=== PATIENT | female | born 1975 | race Caucasian/White ===

== ENCOUNTER 2018-03-13 06:09 | Inpatient (IN) ==
--- NOTE | 2018-03-11 12:26 | XRay Report ---
CLINICAL INFORMATION: Preop COMPARISON: 02/21/2018 FINDINGS: The heart size, mediastinum and pulmonary vessels are unremarkable. The lungs are clear. There are no effusions. The bones and soft tissues are within normal limits. IMPRESSION: Normal chest. Interpreted and Authenticated by: Eleuterio Ferreira 03/11/18
[2018-03-11 14:12] LABS: Basophils # (Auto) 0.1 K/mcL (0.0-0.3); Basophils % (Auto) 0.6 % (0.0-2.0); Eosinophils # (Auto) 0.3 K/mcL (0.0-0.7); Eosinophils % (Auto) 2.3 % (0.0-7.0); Granulocytes % (Auto) 48.9 % (38.0-78.0); Lymphocytes % (Auto) 41.7 % (15.5-49.0); Mean Corpuscular HGB Conc 33.8 g/dL (31.0-36.0); Mean Corpuscular Hemoglobin 30.7 pg (26.0-34.0); Monocytes # (Auto) 0.8 K/mcL (0.1-0.9); Monocytes % (Auto) 6.5 % (1.0-12.0); Platelet Count 339 K/mcL (140-440); RBC 5.44 M/mcL (4.00-5.20); Red Cell Distribution Width 12.7 % (11.5-14.5)
[2018-03-11 14:31] LABS: ALT/SGPT 70 U/l (0-40); Albumin 4.8 gm/dL (3.2-5.2); Albumin/Globulin Ratio 1.5 (1.0-2.3); Alkaline Phosphatase 77 U/L (39-117); Blood Urea Nitrogen 11 mg/dl (6-20)
[~2018-03-13 06:09] MED LIST: IPRATROPIUM/ALBUTEROL 3 ML AMPUL.NEB NEB PRN; SCOPOLAMINE 1 PATCH PATCH TOPICAL PRN
[2018-03-13] MEDS ORDERED: VANCOMYCIN 1,000 MG in 0.9 % SODIUM CHLORIDE 250 ML IV SCH (07:00)
[2018-03-13] MEDS ORDERED: cefOXitin 2 GM VIAL IV SCH (07:00)
[2018-03-13] MEDS ORDERED: DEXAMETHASONE 10 MG/ML VIAL IV ONE (07:35)
[2018-03-13] MEDS ORDERED: LIDOCAINE HCL/PF 100 MG/5 ML SYRINGE IV ONE (07:35)
[2018-03-13] MEDS ORDERED: NEOSTIGMINE 1 MG/ML VIAL IV ONE (07:35)
[2018-03-13] MEDS ORDERED: SUCCINYLCHOLINE 20 MG/ML ML IV ONE (07:35)
[2018-03-13] MEDS ORDERED: PROPOFOL 200 MG/20 ML VIAL IV ONE (07:35)
[2018-03-13] MEDS ORDERED: ROCURONIUM 10 MG/ML ML IV ONE (07:35)
[2018-03-13] MEDS ORDERED: ONDANSETRON 4 MG/2 ML VIAL IV ONE (07:35)
[2018-03-13] MEDS ORDERED: MIDAZOLAM 5 MG/5 ML VIAL IV ONE (07:35)
[2018-03-13] MEDS ORDERED: fentaNYL 250 MCG/5 ML VIAL IV ONE (07:35)
[2018-03-13] MEDS ORDERED: GLYCOPYRROLATE 0.2 MG/ML VIAL IV ONE (07:35)
[2018-03-13] MEDS ORDERED: MEPERIDINE 25 MG/ML SYRINGE IV PRN (08:24)
[2018-03-13] MEDS ORDERED: KETOROLAC 30 MG/ML VIAL IV PRN (08:24)
[2018-03-13] MEDS ORDERED: ACETAMINOPHEN 1,000 MG/100 ML BOTTLE IV ONE (08:24)
[2018-03-13] MEDS ORDERED: ONDANSETRON 4 MG/2 ML VIAL IV PRN (08:24)
[2018-03-13] MEDS ORDERED: IPRATROPIUM/ALBUTEROL 3 ML AMPUL.NEB NEB PRN (08:24)
[2018-03-13] MEDS ORDERED: diphenhydrAMINE 50 MG/ML VIAL IV PRN (08:24)
[2018-03-13] MEDS ORDERED: FLUMAZENIL 0.1 MG/ML ML IV PRN (08:24)
[2018-03-13] MEDS ORDERED: LACTATED RINGERS 250 ML IV PRN (08:24)
[2018-03-13] MEDS ORDERED: BENZOCAINE/MENTHOL 1 LOZENGE PO PRN (08:24)
[2018-03-13] MEDS ORDERED: PROMETHAZINE 25 MG/ML VIAL IV PRN (08:24)
[2018-03-13] MEDS ORDERED: NALOXONE HCL 0.4 MG/ML VIAL IV PRN (08:24)
[2018-03-13] MEDS ORDERED: LACTATED RINGERS 1,000 ML IV SCH (08:30)
[2018-03-13] MEDS ORDERED: BACITRACIN 50,000 UNIT VIAL IR ONE (08:38)
--- NOTE | 2018-03-13 09:04 | Brief Operative Note ---
Date of procedure: 03/13/18 Pre-op diagnosis: recurrent incisional hernia Post-op diagnosis: other (recurrent incisional hernia) Procedure: incisional hernia repair with mesh and separation of components,bilateral Grafts/Implants: Yes (surgimesh 10cm x15cm oval skirted) Anesthesia: GETA (l) Findings: very large fascial defect with incarcerated omentum Complications: none Surgeon: Suze May Estimated blood loss (cc): 25 Specimens Removed/Pathology: none sent Condition: stable Disposition: PACU
[2018-03-13] MEDS ORDERED: ZOLPIDEM 5 MG TABLET PO PRN (09:06)
[2018-03-13] MEDS ORDERED: HYDROcodone/APAP 5/325MG TABLET PO PRN (09:06)
[2018-03-13] MEDS: fentaNYL 100 MCG/2 ML VIAL IV PRN ×4 (09:16→09:49)
[2018-03-13] MEDS ORDERED: MEPERIDINE 50 MG/ML INJECTION IM PRN (09:18)
[2018-03-13] MEDS ORDERED: PROMETHAZINE 25 MG/ML VIAL IM PRN (09:18)
[2018-03-13] MEDS ORDERED: MEPERIDINE 50 MG/ML INJECTION ONE (09:21)
[2018-03-13] MEDS ORDERED: PROMETHAZINE 25 MG/ML VIAL ONE (09:22)
[2018-03-13] MEDS: HYDROmorphone 2 MG/ML VIAL IV PRN ×5 (10:35→22:18)
[2018-03-13] MEDS: ONDANSETRON 4 MG/2 ML VIAL IV PRN (10:38)
[2018-03-13] MEDS: 0.9 % SODIUM CHLORIDE 1,000 ML IV SCH ×2 (12:40→23:37)
[2018-03-13] MEDS: LEVOFLOXACIN 750 MG/150 ML BAG IV SCH (13:39)
[2018-03-13] MEDS: 0.9 % SODIUM CHLORIDE 10 ML SYRINGE IV SCH ×2 (14:40→22:14)
[2018-03-13] MEDS ORDERED: ACETAMINOPHEN 1,000 MG/100 ML BOTTLE IV PRN (15:01)
[2018-03-13] MEDS: MEPERIDINE 50 MG TABLET PO PRN ×3 (15:11→20:36)
[2018-03-13] MEDS: ACETAMINOPHEN 1,000 MG/100 ML BOTTLE IV SCH ×2 (16:05→22:12)
[2018-03-13] MEDS: DOCUSATE SODIUM 100 MG CAPSULE PO SCH (22:12)
[2018-03-14] MEDS: HYDROmorphone 2 MG/ML VIAL IV PRN ×6 (00:41→16:08)
[2018-03-14] MEDS: 0.9 % SODIUM CHLORIDE 1,000 ML IV SCH ×2 (03:14→12:09)
[2018-03-14] MEDS: ACETAMINOPHEN 1,000 MG/100 ML BOTTLE IV SCH ×3 (03:55→23:04)
[2018-03-14 05:33] LABS: Mean Cell Volume 92.3 fL (80.0-100.0); Mean Corpuscular HGB Conc 33.4 g/dL (31.0-36.0); Mean Corpuscular Hemoglobin 30.9 pg (26.0-34.0); Platelet Count 308 K/mcL (140-440); RBC 4.54 M/mcL (4.00-5.20); Red Cell Distribution Width 13.2 % (11.5-14.5)
[2018-03-14 05:48] LABS: ALT/SGPT 86 U/l (0-40); Albumin/Globulin Ratio 1.3 (1.0-2.3); Alkaline Phosphatase 71 U/L (39-117); Bilirubin,Direct < 0.2 mg/dL (0.0-0.3); Blood Urea Nitrogen 8 mg/dl (6-20); Gamma Glutamyl Transpeptidase 105 U/L (5-36); Uric Acid 6.5 mg/dL (2.5-8.0)
[2018-03-14] MEDS: 0.9 % SODIUM CHLORIDE 10 ML SYRINGE IV SCH ×3 (05:54→21:55)
[2018-03-14] MEDS: MEPERIDINE 50 MG TABLET PO PRN ×2 (06:52→10:26)
[2018-03-14 08:02] LABS: Band Neutrophils % 1 % (0-10); Lymphocytes % 28 % (15-49); Monocytes % (Manual) 4 % (1-12); Platelet Estimate NORMAL (NORMAL); RBC Morphology NORMAL (NORMAL); Segmented Neutrophils % 67 % (38-78)
[2018-03-14] MEDS: DOCUSATE SODIUM 100 MG CAPSULE PO SCH ×2 (09:42→21:55)
[2018-03-14] MEDS: LEVOFLOXACIN 750 MG/150 ML BAG IV SCH (09:52)
[2018-03-14] MEDS: KETOROLAC 30 MG/ML VIAL IV SCH ×2 (13:29→18:07)
[2018-03-14] MEDS: oxyCODONE/APAP 10/325MG TABLET PO PRN ×3 (14:34→22:27)
[2018-03-14] MEDS ORDERED: ACETAMINOPHEN 1,000 MG/100 ML BOTTLE IV PRN (16:59)
--- NOTE | 2018-03-14 17:45 | General Surgery Progress Note ---
Subjective Patient reports: feels better, pain is less, tolerating liquids well, flatus, no bowel movement, afebrile Narrative: Note initiated : 03/14/18 at 5:42 pm Service Date, if different from initiated Date: [] Patient: Sandy Khan 42 y/o F admitted on 03/13/18 for Open Hernia Repair Incisional w/Mesh. Chief Complaint: [Patient is stable. She was somewhat agitated earlier today but is feeling better at this time. She has problems with narcotic analgesics but she is advised that I will not increase her dosages. She has no respiratory difficulty. She has had flatus but no bowel movement. Her incision is unremarkable.] Objective Temp Pulse Resp BP Pulse Ox 96.8 F L 75 20 145/81 96 03/14/18 12:00 03/14/18 12:00 03/14/18 12:00 03/14/18 12:00 03/14/18 12:00 - Additional Data Intake & Output - Last 24 hours: Intake & Output 03/12/18 03/13/18 03/14/18 03/15/18 05:59 05:59 05:59 05:59 Intake Total 5300 / 5300 2170 / 2170 Output Total 2450 / 2450 1200 / 1200 Balance 2850 / 2850 970 / 970 Weight 261 lb 12.8 oz 261 lb 12.8 oz 261 lb 12.8 oz - General physical appearance well developed, well nourished, no distress - Eyes PERRL, normal ocular movement - ENT normal pinna, normal nares, normal mucosa, no hearing loss, no congestion - Neck no masses, no bruits, trachea midline, no lymphadectomy, no venous distension - Respiratory normal expansion, normal respiratory effort, clear to auscultation - Cardiovascular Cardiovascular exam: Present: normal rate and rhythm, +S1, +S2. Absent: JVD - Abdomen tender, bowel sounds (She has patient is tomorrow), surgical scars (none), masses (none) - Integumentary no rash, no growths, no abnormal pigmentation - Neurologic normal coordination, normal sensation - Musculoskeletal normal gait, normal posture - Psychiatric oriented to time, oriented to person, oriented to place, speech is normal, memory intact - Labs 03/14/18 04:15 03/14/18 04:15 Diabetes panel 03/14/18 Range/Units 04:15 Sodium 135 (133-145) mmol/L Potassium 4.8 (3.3-5.1) mmol/L Chloride 100 (96-108) mmol/L Carbon Dioxide 23 (22-30) mmol/L BUN 8 (6-20) mg/dl Creatinine 0.8 (0.6-1.1) mg/dl Glucose 126 H (70-105) mg/dL Calcium 9.1 (8.6-10.4) mg/dl AST 49 H (0-37) U/l ALT 86 H (0-40) U/l Alkaline Phosphatase 71 (39-117) U/L Total Protein 7.0 (5.9-8.4) gm/dL Albumin 4.0 (3.2-5.2) gm/dL Triglycerides 134 (<150) mg/dl Calcium panel 03/14/18 Range/Units 04:15 Calcium 9.1 (8.6-10.4) mg/dl Phosphorus 4.0 (2.7-4.5) mg/dL Albumin 4.0 (3.2-5.2) gm/dL Pituitary panel 03/14/18 Range/Units 04:15 Sodium 135 (133-145) mmol/L Potassium 4.8 (3.3-5.1) mmol/L Chloride 100 (96-108) mmol/L Carbon Dioxide 23 (22-30) mmol/L BUN 8 (6-20) mg/dl Creatinine 0.8 (0.6-1.1) mg/dl Glucose 126 H (70-105) mg/dL Calcium 9.1 (8.6-10.4) mg/dl Adrenal panel 03/14/18 Range/Units 04:15 Sodium 135 (133-145) mmol/L Potassium 4.8 (3.3-5.1) mmol/L Chloride 100 (96-108) mmol/L Carbon Dioxide 23 (22-30) mmol/L BUN 8 (6-20) mg/dl Creatinine 0.8 (0.6-1.1) mg/dl Glucose 126 H (70-105) mg/dL Calcium 9.1 (8.6-10.4) mg/dl Total Bilirubin 0.3 (0.0-1.0) mg/dL AST 49 H (0-37) U/l ALT 86 H (0-40) U/l Alkaline Phosphatase 71 (39-117) U/L Total Protein 7.0 (5.9-8.4) gm/dL Albumin 4.0 (3.2-5.2) gm/dL Assessment and Plan (1) Incisional hernia of anterior abdominal wall without obstruction or gangrene Status: Acute Assessment and plan: Continue present therapy Current Visit: Yes - Time Spent With Patient Total time spent is greater than 50% in coordination of care (as documented) at patient's floor/unit and/or counseling patient:
[2018-03-14] MEDS: NICOTINE 21 MG PATCH TD SCH (17:53)
[2018-03-14] MEDS ORDERED: HYDROmorphone 2 MG/ML VIAL ONE (20:22)
[2018-03-15] MEDS: KETOROLAC 30 MG/ML VIAL IV SCH ×3 (00:29→11:39)
[2018-03-15] MEDS: HYDROmorphone 2 MG/ML VIAL IV PRN ×3 (00:33→08:37)
[2018-03-15] MEDS: ONDANSETRON 4 MG/2 ML VIAL IV PRN (01:53)
[2018-03-15] MEDS: oxyCODONE/APAP 10/325MG TABLET PO PRN ×4 (02:28→14:44)
[2018-03-15] MEDS: 0.9 % SODIUM CHLORIDE 10 ML SYRINGE IV SCH ×2 (05:39→08:37)
[2018-03-15] MEDS: LEVOFLOXACIN 750 MG/150 ML BAG IV SCH (09:00)
[2018-03-15] MEDS: DOCUSATE SODIUM 100 MG CAPSULE PO SCH (10:40)
--- NOTE | 2018-03-15 13:41 | Discharge Summary ---
Providers - Providers Patient information: Note initiated : 03/15/18 at 1:39 pm Service Date, if different from initiated Date: [] Patient: Sandy Khan 42 y/o F admitted on 03/13/18 for Open Hernia Repair Incisional w/Mesh. Chief Complaint: [] Date of admission: 03/13/18 Discharge date: 03/15/18 Attending physician: Suze May Hospitalization Hospital course: 42-year-old female who was admitted with incisional hernia. This was repaired uneventfully on the day of admission. She had difficulty with pain control and was very agitated and confrontational on the first postoperative evening and day. Her pain medicine was adjusted but not to her satisfaction. She has some difficulty with narcotic dependence and it is felt that I will not be able to give her enough medication to control her psychogenic need for pain narcotics. The patient is presently stable and is discharged home in satisfactory condition. Discharge diagnosis: Recurrent incisional hernia Reason for admission: incisional hernia with abdominal pain Procedures: Incisional hernia repair with mesh graft Pertinent studies/significant findings: None Complications: None Exam Temp Pulse Resp BP Pulse Ox 97.3 F 60 20 117/79 95 03/15/18 12:00 03/15/18 12:00 03/15/18 04:00 03/15/18 04:00 03/15/18 04:00 - General physical appearance well developed, well nourished, no distress - Eyes PERRL, normal ocular movement - ENT normal pinna, normal nares, normal mucosa, no hearing loss, no congestion - Head Head exam IM: Present: atraumatic, normocephalic - Neck no masses, no bruits, trachea midline, no lymphadectomy, no venous distension - Cardiovascular Cardiovascular exam IM: Present: normal rate and rhythm - Respiratory normal expansion, normal respiratory effort, clear to percussion, clear to auscultation - Abdomen Abdomen: Present: soft, tender (Mild tenderness along incision), bowel sounds, distended (Mild distention but with good active bowel sounds) Hernia: Present: none - Genitourinary Present: normal external genitalia - Integumentary Present: no rash, no growths, no abnormal pigmentation - Neurologic Present: normal coordination, normal sensation - Musculoskeletal Present: normal gait, normal posture - Psychiatric Present: oriented to time, oriented to person, oriented to place, speech is normal, memory intact Discharge Plan - Patient/Caregiver Discharge Instructions Activity: increase activity as tolerated Diet: Regular Diet Prescriptions: LORazepam [Ativan] 1 mg PO BIDP PRN #30 tab PRN Reason: Agitation oxyCODONE HCL [Oxycodone HCl] 10 mg PO Q4HP PRN #60 tab PRN Reason: Pain Promethazine [Phenergan] 25 mg PO Q4HP PRN #30 tab PRN Reason: Nausea And Vomiting - Follow up Plan Follow up with: Suze May MD [Physician] - 03/28/18 1:00 pm Disposition: Home, Self-Care Prognosis: Good Rehab Potential: Good I certify that the patient requires SNF services.: No Overall status at discharge: patient is not back to baseline Pending Studies Resuscitation Status Full Code Diet Full Liquid Diet Start SunMar 13 1503 Docusate Sodium (Colace) 100 mg PO BID [facility] Last Admin: 03/15/18 10:40 Dose: 100 mg Admin: 03/14/18 21:55 Dose: 100 mg Admin: 03/14/18 09:42 Dose: 100 mg Admin: 03/13/18 22:12 Dose: 100 mg Hydromorphone HCl (Dilaudid) 1 mg IV Q4HP PRN PRN Reason: PAIN LEVEL > 6 Last Admin: 03/15/18 08:37 Dose: 1 mg Admin: 03/15/18 04:36 Dose: 1 mg Admin: 03/15/18 00:33 Dose: 1 mg Levofloxacin (Levaquin) 750 mg in 150 mls @ 100 mls/hr IV Q24H [facility] Last Infusion: 03/15/18 10:00 Dose: 100 mls/hr Admin: 03/15/18 09:00 Dose: 100 mls/hr Infusion: 03/14/18 12:09 Dose: 100 mls/hr Admin: 03/14/18 09:52 Dose: 100 mls/hr Infusion: 03/13/18 15:09 Dose: 0 mls/hr Admin: 03/13/18 13:39 Dose: 100 mls/hr Ketorolac Tromethamine (Toradol) 30 mg IV Q6 [facility] Stop: 03/16/18 06:01 Last Admin: 03/15/18 11:39 Dose: 30 mg Admin: 03/15/18 05:39 Dose: 30 mg Admin: 03/15/18 00:29 Dose: 30 mg Admin: 03/14/18 18:07 Dose: 30 mg Admin: 03/14/18 13:29 Dose: 30 mg Nicotine (Nicoderm) 21 mg TD DAILY@1000 MIGUEL Last Admin: 03/14/18 17:53 Dose: Not Given Ondansetron HCl (Zofran) 4 mg IV Q6HP PRN PRN Reason: Nausea And Vomiting Last Admin: 03/15/18 01:53 Dose: 4 mg Admin: 03/13/18 10:38 Dose: 4 mg Oxycodone/Acetaminophen (Percocet 10-325mg) 1 tab PO Q4HP PRN PRN Reason: PAIN LEVEL 3-6 Last Admin: 03/15/18 10:39 Dose: 1 tab Admin: 03/15/18 06:31 Dose: 1 tab Admin: 03/15/18 02:28 Dose: 1 tab Admin: 03/14/18 22:27 Dose: 1 tab Admin: 03/14/18 18:33 Dose: 1 tab Admin: 03/14/18 14:34 Dose: 1 tab Sodium Chloride (Saline Flush) 10 ml IV Q8 MIGUEL Last Admin: 03/15/18 08:37 Dose: 10 ml Admin: 03/15/18 05:39 Dose: 10 ml Admin: 03/14/18 21:55 Dose: 10 ml Admin: 03/14/18 14:57 Dose: 10 ml Admin: 03/14/18 05:54 Dose: Not Given Admin: 03/13/18 22:14 Dose: Not Given Admin: 03/13/18 14:40 Dose: Not Given Shift Summary 03/15/18 04:52 Shift Summary by Milka Light&Demian4. Elevated DBP ranging from 79-93 mmHg. Full liquid diet. Up independently with FWW; ambulated in hallway with x2 this shift. No BM this shift. Surgical incision to abdominal midline has venu in place and Tegaderm in place with scant dried drainage. DARIEN drain had 30ml sanguineous output this shift. Dressing around DARIEN site was saturated; gauze dressing and Tegaderm was changed, shadow drainage present at this time. Abdominal binder in place. 20 gauge to LFA is SL. Patient has verbalized that pain management has been an issue during stay. MD made changes to pain medication regimen. Patient has been receiving scheduled Toradol 30mg Q6H. PRN medications include Dilaudid 1mg IV Q4H and 1 tablet Percocet 10/325mg PO Q4H; have been alternating Q2H t/o shift. Patient verbalized 4/10 pain after last Dilaudid administration at 0430. Patient stated, "the pain has dulled and I am starting to feel comfortable." Patient c/o nausea and indigestion during the night; administered Zofran 4mg IV at 0153. Patient then got up to chair and ate cream of chicken soup and stated the symptoms subsided. Patient stated that she would like to have something to eat prior to each medication administration. MD stated that patient may possibly d/c home today. Will update at bedside. Initialized on 03/15/18 04:52 - END OF NOTE
[2018-03-15] MEDS: NICOTINE 21 MG PATCH TD SCH (14:45)
--- NOTE | 2018-04-02 08:45 | Operative Note ---
DATE OF OPERATION: 03/13/2018 PREOPERATIVE DIAGNOSIS: Recurrent incisional hernia. POSTOPERATIVE DIAGNOSIS: Recurrent incisional hernia. SURGEON: Suze May MD FINDINGS: Very large fascial defect in the supraumbilical midline with incarcerated omentum. PROCEDURE: Incisional hernia repair with mesh and bilateral separation of components. DESCRIPTION OF PROCEDURE: Under general anesthesia, the patient's abdomen was prepped and draped in the sterile field. The large defect was noted in the supraumbilical midline. A midline incision was made above and below the palpable fascial defect. The very large hernia sac was encountered. The incision was dissected down to the fascia. The fascia was opened above and below the defect to allow reduction of the large amount of omentum. The hernia sac was kept intact. The fascial margins were dissected and a 10 x 15 cm oval skirted surgery mesh graft was placed. This was sutured circumferentially with interrupted 0 Prolene. A SecureStrap device was used to further staple the mesh to the fascia. Irrigation was carried out with bacitracin. The fascia was closed in the midline using interrupted 0 Prolene. Further irrigation was carried out. There did not appear to be a need for drains. Subcutaneous tissue was closed in two layers using 2-0 Monocryl. The skin was closed with venu. The patient tolerated the procedure well. She was awakened and transferred to a bed and taken to the post-anesthetic care unit in stable satisfactory condition. LCS:asad Job ID: [id number] Doc ID: [id number] Suze aMy M.D.
== END 2018-03-15 16:15 | disposition home or self-care (01) | DRG 354 ==
LOC: SUR 06:09 → MEDSUR 11:56 → ICU 23:22
PROVIDERS: ADMIT Family Medicine Adult Medicine; ATTEND Family Medicine Adult Medicine

== ENCOUNTER 2021-11-25 07:26 | Observation (INO) ==
[2021-11-15 19:28] LABS: ALT/SGPT 88 U/L (<40); AST/SGOT 91 U/L (<32); Albumin 4.4 gm/dL (3.2-5.2); Alkaline Phosphatase 98 U/L (39-117); Bilirubin,Total 0.6 mg/dL (0.1-1.0); Blood Urea Nitrogen 11 mg/dL (6-20); Calcium 9.9 mg/dL (8.6-10.4); Carbon Dioxide 21 mmol/L (22-30); Chloride 99 mmol/L (96-108); Globulin 4.4 gm/dL (2.2-3.7); Glomerular Filtration Rate 104; Glucose 123 mg/dL (70-105)
--- NOTE | 2021-11-16 12:41 | XRay Report ---
CLINICAL INFORMATION: Preop COMPARISON: 03/11/2018 TECHNIQUE: PA and Lateral views FINDINGS: The heart size, mediastinum and pulmonary vessels are unremarkable. The lungs are clear. There are no effusions. The bones and soft tissues are within normal limits. IMPRESSION: Normal chest. Interpreted and Authenticated by: Eleuterio Ferreira 11/16/21
[2021-11-16 17:35] LABS: Basophils # (Auto) 0.06 K/mcL (0.00-0.30); Basophils % (Auto) 0.6 % (0.0-2.0); Eosinophils # (Auto) 0.06 K/mcL (0.00-0.70); Eosinophils % (Auto) 0.6 % (0.0-7.0); Hematocrit 46.6 % (34.1-44.9); Lymphocytes # (Auto) 4.31 K/mcL (1.50-4.80); Lymphocytes % (Auto) 41.6 % (15.5-49.0); Mean Cell Volume 95.1 fL (80.0-100.0); Mean Corpuscular HGB Conc 34.3 g/dL (31.0-36.0); Mean Platelet Volume 10.7 fL (7.4-10.4); Monocytes # (Auto) 0.67 K/mcL (0.10-0.90); Monocytes % (Auto) 6.5 % (1.0-12.0); Neutrophils % (Auto) 50.7 % (38.0-78.0); Platelet Count 175 K/mcL (140-440); Red Cell Distribution Width 13.2 % (11.5-14.5); WBC 10.4 K/mcL (4.5-11.0)
[2021-11-16 19:12] LABS: INR 1.1 (0.9-1.1); Partial Thromboplastin Time 27.3 sec (20.0-37.0); Prothrombin Time 14.3 sec (11.9-14.5)
--- NOTE | 2021-11-17 13:05 | EKG ---
[facility] Test Date: 2021-11-15 Pat Name: Sandy Khan Department: [facility] Room: Gender: Female [employer]: : 1975 Requested By: Suze May Order Number: [id number] Reading MD: Eleuterio Tam M.D. Measurements Intervals [place] Rate: 83 P: 51 CT: 144 QRS: 106 QRSD: 120 T: 11 QT: 394 QTc: 463 Interpretive Statements Sinus rhythm Probable left atrial enlargement RBBB and LPFB LOW VOLTAGE THROUGHOUT Electronically Signed On 11-17-2021 13:05:37 PST by Eleuterio Tam M.D. /store/[email or web address]/[id number]/[id number]
[~2021-11-25 07:26] MED LIST changes: +CEFEPIME 2 GM VIAL IV SCH; -IPRATROPIUM/ALBUTEROL 3 ML AMPUL.NEB NEB PRN; -SCOPOLAMINE 1 PATCH PATCH TOPICAL PRN; +metroNIDAZOLE 500 MG/100 ML BAG IV SCH
[2021-11-25] MEDS: fentaNYL 100 MCG/2 ML VIAL IV PRN ×6 (08:57→13:03)
[2021-11-25] MEDS ORDERED: LIDOCAINE HCL/PF 100 MG/5 ML SYRINGE IV ONE (10:08)
[2021-11-25] MEDS ORDERED: MIDAZOLAM 2 MG/2 ML VIAL ONE (10:08)
[2021-11-25] MEDS ORDERED: fentaNYL 250 MCG/5 ML VIAL IV ONE (10:08)
[2021-11-25] MEDS ORDERED: ROPIVACAINE HCL/PF 20 ML VIAL IJ ONE (10:08)
[2021-11-25] MEDS ORDERED: LIDOCAINE W/EPI 2% 20 ML VIAL ONE (10:08)
[2021-11-25] MEDS ORDERED: HYDROmorphone 1 MG/ML SYRINGE ONE (10:08)
[2021-11-25] MEDS ORDERED: PROPOFOL 200 MG/20 ML VIAL IV ONE (10:08)
[2021-11-25] MEDS ORDERED: KETAMINE 50 MG/ML Syringe (ANEST) IV ONE (10:08)
[2021-11-25] MEDS ORDERED: MAGNESIUM SULFATE 2 GM/50 ML BAG IV ONE (10:08)
[2021-11-25] MEDS ORDERED: ePHEDrine 50 MG/5 ML SYRINGE (ANEST) IV ONE (10:08)
[2021-11-25] MEDS ORDERED: ONDANSETRON 4 MG/2 ML VIAL ONE (10:08)
[2021-11-25] MEDS ORDERED: PHENYLephrine 1 MG/10 ML SYRINGE (ANEST) ONE (10:08)
[2021-11-25] MEDS ORDERED: DEXAMETHASONE 10 MG/ML VIAL ONE (10:08)
[2021-11-25] MEDS ORDERED: ROCURONIUM 10 MG/ML ML IV ONE (10:08)
[2021-11-25] MEDS ORDERED: METHOCARBAMOL 1,000 MG/10 ML VIAL IV PRN (11:56)
[2021-11-25] MEDS ORDERED: METOCLOPRAMIDE 10 MG/2 ML VIAL IV PRN (11:56)
[2021-11-25] MEDS ORDERED: LACTATED RINGERS 250 ML IV PRN (11:56)
[2021-11-25] MEDS ORDERED: KETOROLAC 30 MG/ML VIAL IV PRN (11:56)
[2021-11-25] MEDS ORDERED: PROMETHAZINE 25 MG/ML VIAL IM PRN (11:56)
[2021-11-25] MEDS ORDERED: LABETALOL 5 MG/ML ML IV PRN (11:56)
[2021-11-25] MEDS ORDERED: ACETAMINOPHEN 1,000 MG/100 ML BAG IV ONE (11:56)
[2021-11-25] MEDS ORDERED: MEPERIDINE 25 MG/ML VIAL IV PRN (11:56)
[2021-11-25] MEDS ORDERED: IPRATROPIUM/ALBUTEROL 3 ML AMPUL.NEB NEB PRN (11:56)
[2021-11-25] MEDS ORDERED: BENZOCAINE/MENTHOL 1 LOZENGE PO PRN (11:56)
[2021-11-25] MEDS ORDERED: PROMETHAZINE 25 MG/ML VIAL IV PRN (11:56)
[2021-11-25] MEDS ORDERED: MEPERIDINE 50 MG/ML VIAL IM PRN (11:56)
[2021-11-25] MEDS ORDERED: ONDANSETRON 4 MG/2 ML VIAL IV PRN (11:56)
[2021-11-25] MEDS ORDERED: NALOXONE HCL 0.4 MG/ML VIAL IV PRN (11:56)
[2021-11-25] MEDS ORDERED: LACTATED RINGERS 1,000 ML IV SCH (12:00)
[2021-11-25] MEDS ORDERED: GENTAMICIN SULFATE 800 MG/20 ML VIAL IR ONE (12:10)
--- NOTE | 2021-11-25 12:35 | Brief Operative Note ---
Brief Operative Note Date of procedure: 11/25/21 Pre-op diagnosis: recurrent incisional hernia Post-op diagnosis: other (revurrent incisional hernia) Procedure: explantaation of mesh graft and incisional hernia repair with mesh graft Grafts/Implants: Yes (surgimesh) Anesthesia: GETA Findings: disruption of previous mesh with full hernia recurrence Complications: none Surgeon: Suze May Estimated blood loss (cc): 25 Condition: stable Disposition: PACU
[2021-11-25] MEDS ORDERED: VANCOMYCIN 1 GM VIAL TOPICAL SCH (13:00)
[2021-11-25] MEDS ORDERED: MIDAZOLAM 2 MG/2 ML VIAL IV ONE (13:04)
[2021-11-25] MEDS: HYDROmorphone 0.5 MG/0.5 ML SYRINGE IV PRN ×2 (13:08→13:23)
[2021-11-25] MEDS: 0.9 % SODIUM CHLORIDE 1,000 ML IV SCH (14:28)
[2021-11-25] MEDS: HYDROmorphone 1 MG/ML SYRINGE IV PRN ×5 (14:29→23:39)
[2021-11-25] MEDS: 0.9 % SODIUM CHLORIDE 10 ML SYRINGE IV SCH ×2 (14:54→20:18)
[2021-11-25] MEDS: PANTOPRAZOLE 40 MG VIAL IV SCH (17:17)
[2021-11-25] MEDS: METOCLOPRAMIDE 10 MG/2 ML VIAL IV SCH ×2 (17:17→23:40)
[2021-11-25] MEDS: ACETAMINOPHEN 1,000 MG/100 ML BAG IV SCH (17:59)
[2021-11-25] MEDS: ONDANSETRON 4 MG/2 ML VIAL IV PRN (19:15)
[2021-11-25] MEDS: SENNOSIDES 1 TABLET PO SCH (19:15)
[2021-11-25] MEDS: DOCUSATE SODIUM 100 MG CAPSULE PO SCH (19:15)
[2021-11-25] MEDS: LORazepam 1 MG TABLET PO PRN (21:45)
[2021-11-25] MEDS ORDERED: LORazepam 1 MG TABLET ONE (21:48)
[2021-11-26] MEDS: ACETAMINOPHEN 1,000 MG/100 ML BAG IV SCH ×3 (00:10→12:40)
[2021-11-26] MEDS: 0.9 % SODIUM CHLORIDE 1,000 ML IV SCH ×4 (01:03→19:28)
[2021-11-26] MEDS: HYDROmorphone 1 MG/ML SYRINGE IV PRN ×8 (01:52→22:48)
[2021-11-26] MEDS: ONDANSETRON 4 MG/2 ML VIAL IV PRN ×3 (02:18→20:57)
[2021-11-26] MEDS: LORazepam 1 MG TABLET PO PRN ×3 (04:04→19:27)
[2021-11-26] MEDS: 0.9 % SODIUM CHLORIDE 10 ML SYRINGE IV SCH ×3 (05:44→20:41)
[2021-11-26] MEDS: METOCLOPRAMIDE 10 MG/2 ML VIAL IV SCH ×3 (05:51→17:34)
[2021-11-26] MEDS: PANTOPRAZOLE 40 MG VIAL IV SCH ×2 (06:35→16:30)
[2021-11-26 07:09] LABS: Basophils # (Auto) 0.03 K/mcL (0.00-0.30); Basophils % (Auto) 0.2 % (0.0-2.0); Eosinophils # (Auto) 0 K/mcL (0.00-0.70); Eosinophils % (Auto) 0 % (0.0-7.0); Hematocrit 39.6 % (34.1-44.9); Hemoglobin 13.2 g/dL (11.2-15.7); Lymphocytes % (Auto) 15.4 % (15.5-49.0); Mean Cell Volume 98.3 fL (80.0-100.0); Mean Corpuscular HGB Conc 33.3 g/dL (31.0-36.0); Mean Platelet Volume 10.9 fL (7.4-10.4); Monocytes # (Auto) 1.32 K/mcL (0.10-0.90); Monocytes % (Auto) 8.1 % (1.0-12.0); Neutrophils % (Auto) 76.3 % (38.0-78.0); Platelet Count 153 K/mcL (140-440); RBC 4.03 M/mcL (3.59-5.38); Red Cell Distribution Width 13.2 % (11.5-14.5); WBC 16.3 K/mcL (4.5-11.0)
[2021-11-26 07:47] LABS: ALT/SGPT 161 U/L (<40); AST/SGOT 87 U/L (<32); Albumin 4.2 gm/dL (3.2-5.2); Albumin/Globulin Ratio 1.4 (1.0-2.3); Alkaline Phosphatase 80 U/L (39-117); Bilirubin,Direct 0.2 mg/dL (<0.3); Bilirubin,Total 0.6 mg/dL (0.1-1.0); Blood Urea Nitrogen 9 mg/dL (6-20); Calcium 8.3 mg/dL (8.6-10.4); Carbon Dioxide 19 mmol/L (22-30); Chloride 98 mmol/L (96-108); Globulin 3.1 gm/dL (2.2-3.7); Glomerular Filtration Rate 104; Glucose 116 mg/dL (70-105); Lactate Dehydrogenase 229 U/L (135-225); Phosphorous 3.8 mg/dL (2.5-4.5); Triglycerides 90 mg/dL (<150)
[2021-11-26] MEDS: DOCUSATE SODIUM 100 MG CAPSULE PO SCH ×2 (08:39→20:33)
[2021-11-26] MEDS: oxyCODONE HCL 5 MG TABLET PO PRN ×4 (08:39→20:33)
--- NOTE | 2021-11-26 10:35 | General Surgery Progress Note ---
SUBJECTIVE Subjective Patient information: Note initiated : 11/26/21 at 10:30 am Service Date, if different from initiated Date: [] Patient: Sandy Khan 46 y/o F admitted on 11/25/21 for Incisional Hernia Repair, Exploration Mesh Graft. Chief Complaint: [] Principal diagnosis: Recurrent incisional hernia with incarceration Interval history: Patient is much better. Her pain is better controlled. She denies nausea. She has had a small amount of flatus. White blood count 16,300, hemoglobin 13.2, hematocrit 39.6, BUN 9, creatinine 0.7, glucose 116. Constitutional Vitals: Vital Signs Temp Pulse Resp BP Pulse Ox 97.5 F 84 18 118/74 93 11/26/21 06:42 11/26/21 06:42 11/26/21 06:42 11/26/21 06:42 11/26/21 06:42 Period Temp Pulse Resp BP Sys/Dwyer Pulse Ox Last 24 Hr 97.5 F-98.6 F 71-113 9-31 95-159/57-100 92-100 Intake and Output 11/25/21 11/26/21 11/26/21 21:59 05:59 13:59 Intake Total 100 1900 100 Output Total 610 830 655 Balance -510 1070 -555 Weight 244 lb 9.6 oz Intake & Output: Intake & Output 11/25/21 11/26/21 11/26/21 21:59 05:59 13:59 Intake Total 100 1900 100 Output Total 610 830 655 Balance -510 1070 -555 Weight 244 lb 9.6 oz Intake: IV 100 1100 100 Sodium Chloride 0.9% 1,000 ml @ 1000 75 mls/hr IV .[id number] [facility] Rx#: [id number] Oral 800 Output: Drainage 150 30 Left Upper Abdomen 150 30 Drainage 110 30 Left Lower Abdomen 15 Left Upper Abdomen 35 30 Right Lower Abdomen 10 Right Upper Abdomen 50 Urine Catheter Amount 350 800 625 Other: Urine Appearance Clear Uretheral (Yung) Clear Urine Color Dark Yellow Dark Yellow Dark Yellow Uretheral (Yung) Bright Yellow Urine Odor Uretheral (Yung) Normal ENT ENT exam: Present mucous membranes moist, normal external ear exam and normal oropharynx Neck Neck exam: Present full ROM and normal inspection; Absent lymphadenopathy Respiratory Respiratory exam: Present normal respiratory exam and CTAB; Absent wheezes Cardiovascular Cardiovascular exam: Present normal rate and rhythm, RRR, +S1 and +S2; Absent JVD GI/Abdominal GI/Abdominal exam: Present normal bowel sounds; Absent distended Additional comments: Incision looks good; moderate amount of bloody drainage Extremities Exam Extremities exam: Present full ROM and neurovascular intact; Absent pedal edema Neurological Exam Neurological exam: Present abnormal gait, normal gait and oriented X3; Absent motor sensory deficit Psychiatric Psychiatric exam: Present normal affect and normal mood A/P Assessment and plan (1) Recurrent incisional hernia with incarceration: Status: Chronic Narrative A/P Narrative: discontinue Yung catheter check CBC in inpatient panel Possible discharge in the morning Time Spent With Patient Time: Total time spent is greater than 50% in coordination of care (as documented) at patient's floor/unit and/or counseling patient:
[2021-11-26] MEDS: SENNOSIDES 1 TABLET PO SCH (20:33)
[2021-11-27] MEDS: HYDROmorphone 1 MG/ML SYRINGE IV PRN ×8 (00:52→22:32)
[2021-11-27] MEDS: METOCLOPRAMIDE 10 MG/2 ML VIAL IV SCH ×4 (00:53→17:19)
[2021-11-27] MEDS: LORazepam 1 MG TABLET PO PRN ×3 (00:54→20:33)
[2021-11-27] MEDS: 0.9 % SODIUM CHLORIDE 1,000 ML IV SCH (05:56)
[2021-11-27] MEDS: 0.9 % SODIUM CHLORIDE 10 ML SYRINGE IV SCH ×3 (05:56→20:33)
[2021-11-27 06:25] LABS: Basophils # (Auto) 0.08 K/mcL (0.00-0.30); Basophils % (Auto) 0.6 % (0.0-2.0); Eosinophils # (Auto) 0.18 K/mcL (0.00-0.70); Eosinophils % (Auto) 1.3 % (0.0-7.0); Hematocrit 36.8 % (34.1-44.9); Hemoglobin 12.2 g/dL (11.2-15.7); Lymphocytes % (Auto) 33.5 % (15.5-49.0); Mean Cell Volume 99.7 fL (80.0-100.0); Mean Corpuscular HGB Conc 33.2 g/dL (31.0-36.0); Mean Platelet Volume 10.1 fL (7.4-10.4); Neutrophils % (Auto) 58.6 % (38.0-78.0); Platelet Count 156 K/mcL (140-440); RBC 3.69 M/mcL (3.59-5.38); Red Cell Distribution Width 13.6 % (11.5-14.5); WBC 13.4 K/mcL (4.5-11.0)
[2021-11-27 06:40] LABS: ALT/SGPT 121 U/L (<40); AST/SGOT 61 U/L (<32); Albumin 3.7 gm/dL (3.2-5.2); Albumin/Globulin Ratio 1.1 (1.0-2.3); Alkaline Phosphatase 72 U/L (39-117); Bilirubin,Direct 0.2 mg/dL (<0.3); Bilirubin,Total 0.5 mg/dL (0.1-1.0); Blood Urea Nitrogen 7 mg/dL (6-20); Calcium 8.7 mg/dL (8.6-10.4); Carbon Dioxide 23 mmol/L (22-30); Chloride 100 mmol/L (96-108); Globulin 3.4 gm/dL (2.2-3.7); Glomerular Filtration Rate 109; Glucose 129 mg/dL (70-105); Lactate Dehydrogenase 203 U/L (135-225); Phosphorous 2.8 mg/dL (2.5-4.5); Triglycerides 124 mg/dL (<150); Uric Acid 5.8 mg/dL (2.5-8.0)
[2021-11-27] MEDS: PANTOPRAZOLE 40 MG VIAL IV SCH ×2 (07:15→17:19)
[2021-11-27] MEDS: DOCUSATE SODIUM 100 MG CAPSULE PO SCH ×2 (09:00→19:58)
[2021-11-27] MEDS: oxyCODONE HCL 5 MG TABLET PO PRN (11:02)
--- NOTE | 2021-11-27 13:25 | General Surgery Progress Note ---
SUBJECTIVE Subjective Patient information: Note initiated : 11/27/21 at 1:20 pm Service Date, if different from initiated Date: [] Patient: Sandy Khan 46 y/o F admitted on 11/25/21 for Incisional Hernia Repair, Exploration Mesh Graft. Chief Complaint: [] Principal diagnosis: Recurrent incisional hernia with incarceration Interval history: Patient continues to improve. She denies nausea. She has been afebrile. Vital signs are totally stable. White blood count 13.4, hemoglobin 12.2, hematocrit 36.8, potassium 4.2, BUN 7, creatinine 0.6. Constitutional Vitals: Vital Signs Temp Pulse Resp BP Pulse Ox 96.7 F L 112 H 20 153/86 97 11/27/21 11:07 11/27/21 11:07 11/27/21 11:07 11/27/21 11:07 11/27/21 11:07 Period Temp Pulse Resp BP Sys/Dwyer Pulse Ox Last 24 Hr 96.3 F-98 F 85-112 18-20 108-153/67-86 90-97 Intake and Output 11/26/21 11/27/21 11/27/21 21:59 05:59 13:59 Intake Total 1800 1600 1700 Output Total 1520 1110 355 Balance 607 373 3886 Weight 249 lb 12.8 oz 249 lb 12.8 oz Patient Weight 11/28/21 05:59 Weight 249 lb 12.8 oz Intake & Output: Intake & Output 11/26/21 11/27/21 11/27/21 21:59 05:59 13:59 Intake Total 1800 1600 1700 Output Total 1520 1110 355 Balance 298 090 4616 Weight 249 lb 12.8 oz 249 lb 12.8 oz Intake: IV 1000 900 Sodium Chloride 0.9% 1,000 ml @ 1000 900 75 mls/hr IV .[id number] [facility] Rx#: [id number] Oral 800 1600 800 Output: Drainage 70 55 Left Lower Abdomen 15 10 Left Upper Abdomen 20 20 Right Lower Abdomen 15 10 Right Upper Abdomen 20 15 Drainage 110 Left Lower Abdomen 40 Left Upper Abdomen 20 Right Lower Abdomen 10 Right Upper Abdomen 40 Void Amount 1450 1000 300 Other: Urine Appearance Clear Clear Urine Color Bright Yellow Bright Yellow # Voids 2 Respiratory Respiratory exam: Present normal respiratory exam and CTAB Cardiovascular Cardiovascular exam: Present normal rate and rhythm, RRR, +S1 and +S2; Absent J VD GI/Abdominal GI/Abdominal exam: Present normal bowel sounds and distended (Mild distention but with good active bowel sounds) Additional comments: Incision looks good. Drainage is becoming more serous and the volume is decreasing. Extremities Exam Extremities exam: Present full ROM, normal inspection and neurovascular intact; Absent calf tenderness or tenderness Neurological Exam Neurological exam: Present alert and normal gait; Absent motor sensory deficit Psychiatric Psychiatric exam: Present normal affect and normal mood A/P Assessment and plan (1) Obesity: Status: Chronic (2) Incisional hernia of anterior abdominal wall without obstruction or ga ngrene: Status: Chronic Narrative A/P Narrative: Continue present therapy Saline lock IV Probable discharge tomorrow Time Spent With Patient Time: Total time spent is greater than 50% in coordination of care (as documented) at patient's floor/unit and/or counseling patient:
[2021-11-27] MEDS: SENNOSIDES 1 TABLET PO SCH (19:58)
[2021-11-27] MEDS: ONDANSETRON 4 MG/2 ML VIAL IV PRN (20:33)
[2021-11-28] MEDS: oxyCODONE HCL 5 MG TABLET PO PRN ×2 (01:03→04:53)
[2021-11-28] MEDS: METOCLOPRAMIDE 10 MG/2 ML VIAL IV SCH ×4 (01:05→12:08)
[2021-11-28] MEDS ORDERED: BUTALB/ACETAMINOPHEN/CAFFEINE 1 TABLET PO PRN (01:19)
[2021-11-28] MEDS ORDERED: ONDANSETRON 4 MG ODT TABLET SL PRN (01:20)
[2021-11-28] MEDS ORDERED: ONDANSETRON 4 MG ODT TABLET ONE (01:28)
[2021-11-28] MEDS: LORazepam 1 MG TABLET PO PRN ×2 (03:19→09:48)
[2021-11-28] MEDS: 0.9 % SODIUM CHLORIDE 10 ML SYRINGE IV SCH ×2 (04:54→12:08)
[2021-11-28] MEDS: HYDROmorphone 1 MG/ML SYRINGE IV PRN ×2 (06:56→10:00)
[2021-11-28] MEDS: PANTOPRAZOLE 40 MG VIAL IV SCH (06:57)
[2021-11-28 07:49] LABS: Basophils # (Auto) 0.05 K/mcL (0.00-0.30); Basophils % (Auto) 0.5 % (0.0-2.0); Eosinophils # (Auto) 0.18 K/mcL (0.00-0.70); Eosinophils % (Auto) 1.8 % (0.0-7.0); Hematocrit 35.9 % (34.1-44.9); Hemoglobin 12.2 g/dL (11.2-15.7); Lymphocytes # (Auto) 3.93 K/mcL (1.50-4.80); Lymphocytes % (Auto) 39.4 % (15.5-49.0); Mean Cell Volume 98.4 fL (80.0-100.0); Mean Platelet Volume 10.5 fL (7.4-10.4); Monocytes # (Auto) 0.69 K/mcL (0.10-0.90); Monocytes % (Auto) 6.9 % (1.0-12.0); Neutrophils % (Auto) 51.4 % (38.0-78.0); Platelet Count 142 K/mcL (140-440); RBC 3.65 M/mcL (3.59-5.38); Red Cell Distribution Width 13.3 % (11.5-14.5)
[2021-11-28] MEDS ORDERED: HYDROcodone/APAP 10/325MG TABLET PO PRN (08:03)
[2021-11-28] MEDS: DOCUSATE SODIUM 100 MG CAPSULE PO SCH (08:26)
[2021-11-28] MEDS ORDERED: oxyCODONE HCL 5 MG TABLET PO PRN (10:54)
--- NOTE | 2021-11-28 13:21 | Discharge Summary ---
Discharge Provider Provider Patient information: Note initiated : 11/28/21 at 1:11 pm Service Date, if different from initiated Date: [] Patient: Sandy Khan 46 y/o F admitted on 11/25/21 for Incisional Hernia Repair, Exploration Mesh Graft. Chief Complaint: [] Date of admission: 11/25/21 14:07 Discharge date: 11/28/21 Primary care physician: Satinder Carranza MD Admitting clinician: Suze May Attending physician on admission: Suze May Attending physician on discharge: Suze May Discharging clinician: Suze May COURSE Hospital Course Hospital course: 46-year-old female who is status post repair of a recurrent incisional hernia. She had disruption of her subfascial mesh with possible involvement of mesh was explanted and dissection of the attenuated residual fascia was carried out to the border of the internal and exteRNAL oblique muscle bilaterally. The midline fascia was exceptionally attenuated so a much larger mesh graft was placed and was sutured subfascially and tacked circumferentially to allow for better adherence. She has [address] which is draining the space created by the extensive dissection. Patient has done well except for poor pain control. Discharge diagnosis: Recurrent incisional hernia Reason for admission: Postoperative incisional hernia repair Procedures: Explantation of subfascial mesh with hernia closure with new subfascial mesh graft Pertinent studies/significant findings: None Complications: None Time Spent with Patient Time attestation: Total time spent providing and/or coordinating discharge services: Physical Examination Vital Signs Vital signs: Temp Pulse Resp BP Pulse Ox 97.6 F 105 H 20 134/76 92 11/28/21 06:55 11/28/21 06:55 11/28/21 06:55 11/28/21 06:55 11/28/21 06:55 Eyes Eye exam: PERRL and normal ocular movement ENT ENT exam: normal nares and normal mucosa Head Head exam IM: Present atraumatic, normal inspection and normocephalic Neck Neck exam: no masses, no bruits, trachea midline, no lymphadenopathy and no venous distension Cardiovascular Cardiovascular exam IM: Present normal rate and rhythm, RRR, +S1 and +S2; Absent JVD Respiratory Respiratory exam: normal expansion, normal respiratory effort and clear to auscultation Abdomen Abdomen: Present tender (Diffuse tenderness of the incision and drain sites), bowel sounds (Good active bowel sounds) and distended (Mild distention) Integumentary Integumentary: Present no rash, no growths and no abnormal pigmentation Musculoskeletal Musculoskeletal: Present normal gait and normal posture Discharge Plan Patient/Caregiver Discharge Instructions Activity: increase activity as tolerated Diet: Regular Diet Prescriptions: New oxycodone-acetaminophen [Endocet] 10-325 mg Tablet 1 tab PO Q4H PRN (Reason: Pain) Qty: 40 0RF lorazepam 0.5 MG tablet 1 mg PO Q6HP PRN (Reason: Anxiety) Qty: 90 0RF methocarbamol 750 MG tablet 750 mg PO Q6HP PRN (Reason: Muscle Spasm) Qty: 60 0RF No Action hydrocodone-acetaminophen 10-325 mg tablet 1 tab PO BID PRN (Reason: pain) 30 Days Qty: 60 0RF Rx Instructions: Must last 30 days. naproxen 500 mg Tablet 500 mg PO QDAY 0RF Follow Up Plan Follow up with: Suze May MD [Physician] - 12/12/21 9:45 am Patient Disposition: Home, Self-Care Prognosis: Good Rehab Potential: Good I certify that the patient requires SNF services: No Overall status at discharge: patient is progressing back to baseline Discharge Orders: Discharge Order (Routine); Ordered 11/28/21 Ordered By: Suze May Pending Pending Pending: Resuscitation Status Resuscitate (Full Code) Diet Full Liquid Diet Start SunNov 25 1238 Hydrocodone Bitart/Acetaminophen (Hydrocodone/Apap 10/325mg Tablet) 1 tab PO Q4HP PRN; Protocol PRN Reason: pain Last Admin: 11/28/21 08:26 Dose: 1 tab Documented by: YASHIRA Docusate Sodium (Docusate Sodium 100 Mg Capsule) 100 mg PO BID [facility] Last Admin: 11/28/21 08:26 Dose: 100 mg Documented by: Admin: 11/27/21 19:58 Dose: 100 mg Documented by: Admin: 11/27/21 09:00 Dose: 100 mg Documented by: Admin: 11/26/21 20:33 Dose: 100 mg Documented by: Admin: 11/26/21 08:39 Dose: 100 mg Documented by: Admin: 11/25/21 19:15 Dose: 100 mg Documented by: SCARLEY Hydromorphone HCl (Hydromorphone 1 Mg/Ml Syringe) 1 - 2 mg IV Q2HP PRN; Protocol PRN Reason: Per Pain Protocol Last Admin: 11/28/21 10:00 Dose: 1 mg Documented by: Admin: 11/28/21 06:56 Dose: 1 mg Documented by: Admin: 11/27/21 22:32 Dose: 2 mg Documented by: Admin: 11/27/21 17:19 Dose: 2 mg Documented by: Admin: 11/27/21 15:18 Dose: 2 mg Documented by: Admin: 11/27/21 13:03 Dose: 2 mg Documented by: Admin: 11/27/21 09:00 Dose: 2 mg Documented by: Admin: 11/27/21 05:55 Dose: 2 mg Documented by: Admin: 11/27/21 03:40 Dose: 2 mg Documented by: Admin: 11/27/21 00:52 Dose: 2 mg Documented by: Admin: 11/26/21 22:48 Dose: 2 mg Documented by: Admin: 11/26/21 19:26 Dose: 2 mg Documented by: Admin: 11/26/21 16:31 Dose: 2 mg Documented by: MELISSA Lorazepam (Lorazepam 1 Mg Tablet) 1 mg PO Q6HP PRN PRN Reason: ANXIETY/SEDATION Last Admin: 11/28/21 09:48 Dose: 1 mg Documented by: Admin: 11/28/21 03:19 Dose: 1 mg Documented by: Admin: 11/27/21 20:33 Dose: 1 mg Documented by: Admin: 11/27/21 07:18 Dose: 1 mg Documented by: Admin: 11/27/21 00:54 Dose: 1 mg Documented by: Admin: 11/26/21 19:27 Dose: 1 mg Documented by: Admin: 11/26/21 12:45 Dose: 1 mg Documented by: Admin: 11/26/21 04:04 Dose: 1 mg Documented by: Admin: 11/25/21 21:45 Dose: 1 mg Documented by: TABITHA Metoclopramide HCl (Metoclopramide 10 Mg/2 Ml Vial) 10 mg IV Q6 [facility] Last Admin: 11/28/21 12:08 Dose: 10 mg Documented by: Admin: 11/28/21 06:56 Dose: 10 mg Documented by: Admin: 11/28/21 04:54 Dose: Not Given Documented by: Admin: 11/28/21 01:05 Dose: Not Given Documented by: Admin: 11/27/21 17:19 Dose: 10 mg Documented by: Admin: 11/27/21 11:01 Dose: 10 mg Documented by: Admin: 11/27/21 05:55 Dose: 10 mg Documented by: Admin: 11/27/21 00:53 Dose: 10 mg Documented by: Admin: 11/26/21 17:34 Dose: 10 mg Documented by: Admin: 11/26/21 11:01 Dose: 10 mg Documented by: Admin: 11/26/21 05:51 Dose: 10 mg Documented by: Admin: 11/25/21 23:40 Dose: 10 mg Documented by: Admin: 11/25/21 17:17 Dose: 10 mg Documented by: MELISSA Ondansetron HCl (Ondansetron 4 Mg/2 Ml Vial) 4 mg IV Q6HP PRN PRN Reason: Nausea And Vomiting Last Admin: 11/27/21 20:33 Dose: 4 mg Documented by: Admin: 11/26/21 20:57 Dose: 4 mg Documented by: Admin: 11/26/21 09:11 Dose: 4 mg Documented by: Admin: 11/26/21 02:18 Dose: 4 mg Documented by: Admin: 11/25/21 19:15 Dose: 4 mg Documented by: TABITHA Ondansetron HCl (Ondansetron 4 Mg Odt Tablet) 4 mg SL Q4HP PRN PRN Reason: Nausea And Vomiting Last Admin: 11/28/21 01:25 Dose: 4 mg Documented by: KASEY Oxycodone HCl (Oxycodone Hcl 5 Mg Tablet) 10 mg PO Q4HP PRN; Protocol PRN Reason: Per Pain Protocol Last Admin: 11/28/21 12:33 Dose: 10 mg Documented by: YASHIRA Pantoprazole Sodium (Pantoprazole 40 Mg Vial) 40 mg IV BIDAC [facility] Last Admin: 11/28/21 06:57 Dose: 40 mg Documented by: Admin: 11/27/21 17:19 Dose: 40 mg Documented by: Admin: 11/27/21 07:15 Dose: 40 mg Documented by: Admin: 11/26/21 16:30 Dose: 40 mg Documented by: Admin: 11/26/21 06:35 Dose: 40 mg Documented by: Admin: 11/25/21 17:17 Dose: 40 mg Documented by: MELISSA Senna (Sennosides 1 Tablet) 2 tab PO HS [facility] Last Admin: 11/27/21 19:58 Dose: 2 tab Documented by: Admin: 11/26/21 20:33 Dose: 2 tab Documented by: Admin: 11/25/21 19:15 Dose: 2 tab Documented by: TABITHA Sodium Chloride (0.9 % Sodium Chloride 10 Ml Syringe) 10 ml IV Q8 [facility] Admin: 11/28/21 12:08 Dose: 10 ml Documented by: Admin: 11/28/21 04:54 Dose: Not Given Documented by: Admin: 11/27/21 20:33 Dose: 10 ml Documented by: Admin: 11/27/21 13:03 Dose: 10 ml Documented by: Admin: 11/27/21 05:56 Dose: Not Given Documented by: Admin: 11/26/21 20:41 Dose: 10 ml Documented by: Admin: 11/26/21 12:53 Dose: Not Given Documented by: Admin: 11/26/21 05:44 Dose: Not Given Documented by: Admin: 11/25/21 20:18 Dose: Not Given Documented by: Admin: 11/25/21 14:54 Dose: Not Given Documented by: MELISSA Shift Summary 11/28/21 02:56 Shift Summary by Samanta Cope Primary Diagnosis: Incisional hernia repair with mesh graft Registration Status: M/S IP Day of Hospitalization: 11/25 Date of Surgery (if applicable): 11/25 Pertinent Medical Hx : Incarcerated incisional hernia Vital Signs : VSS on RA Neuro : A&OX4. Ambulation status : Independent in rm. Struggles while getting to and from bathroom w/ c/o pain. Able to relax once back in bed. Diet : Full liquid PRN Meds : Dilaudid 2mg IV given @ 1999 & 2229, IV infiltrated. Roxicodone given @ 99. Ativan given @ 0300. Lines/Tubes: DARIEN X4 to RUQ, RLQ, LUQ, LLQ putting out small amts serosang. Lab/Rad results: Void / BM: AUO per toilet, no BM, states passing sm amt flatus. Skin / Wound : Midline abd dsg intact, ABD binder on. Recommendations/questions for MD (DC Dilshad? DC CM? PICC needed?): Expected date of discharge: Possibly today, 11/28 Discharge Plan (needs, disposition, etc): To return home w/ . Initialized on 11/28/21 02:56 - END OF NOTE
--- NOTE | 2021-12-01 13:02 | Operative Note ---
DATE OF OPERATION: 11/25/2021 PREOPERATIVE DIAGNOSIS: Recurrent incisional hernia. POSTOPERATIVE DIAGNOSIS: Recurrent incisional hernia. PROCEDURE: Explantation of a 10 x 15 cm mesh graft with revision of abdominal wall muscle and incisional hernia repair with subfascial 11 x 22 cm oval skirted mesh graft and primary closure over drains. SURGEON: Suze May M.D. FINDINGS: Disruption of previous mesh graft with full hernia recurrence and attenuation of midline fascia. DESCRIPTION OF PROCEDURE: Under general anesthesia, the patient's abdomen was prepped and draped in a sterile field. The previous midline incision was entered. There was a poorly-developed hernia sac. There was omentum and bowel adherent in the subcutaneous tissue. This was dissected free using electrocautery and Metzenbaum scissors. The mesh had pulled out along the right lateral border in the superior margin. It was crumpled in a large mass on the left side of the incision and was densely adherent to the surrounding structures. Using careful sharp dissection with Metzenbaum scissors, the mesh was from the bowel and omentum. Care was taken to make sure that there were no enterotomies. Adhesiolysis of some of the bowel had to be carried out in order to reduce it back into the peritoneal cavity. Once the mesh graft was removed, it was apparent that the residual fascia was not sturdy enough to hold suture and that I needed to place my suture more laterally and more superiorly and inferior than on the last repair. A previous separation of components had been done so the lateral margins would have to be at the lateral margin of the rectus fascia. An 15 x 22 oval skirted mesh graft was chosen. A McNealy visceral retractor was placed to prevent injury to the bowel. The mesh was placed over this and initially the skirts on the graft were placed as wide as possible away from the margin of the fascial defect. The sutures were overlapped to make sure that there were no areas where omentum or bowel could pull between the mesh and the fascia. Once this was completed, the suture was tied. The mesh was then secured further to the fascia using the SecureStrap absorbable venu. This was performed on each of the skirted segments circumferentially. Irrigation was carried out. The retractor was removed. More dissection was necessary to be carried out in the deep subcutaneous plane, the fascia from the overlying subcutaneous fat. Drains were placed over the mesh and brought out inferiorly through separate stab incisions. The fascia was then closed in the midline using extensive interrupted [id number] #1 Prolene. The subcutaneous tissue was irrigated and two 10 Eduin drains were placed in the full-thickness subcutaneous flaps to prevent seroma formation. These were brought out superiorly above the incision. Subcutaneous tissue was closed in two layers using running 2-0 Monocryl. The skin was closed with venu. Drains were secured with 2-0 nylon. Drain sponges and Tegaderm were used to cover the incision. The patient tolerated the procedure well. She was awakened and transferred to the postanesthetic care unit in stable, satisfactory condition. LCS:faina Job ID: [id number] Doc ID: [id number] Suze May M.D.
== END 2021-11-28 16:35 | disposition home or self-care (01) ==
LOC: SUR 07:26 → MEDSUR 14:07 → INTOOBSV 14:07
PROVIDERS: ADMIT Family Medicine Adult Medicine; ATTEND Family Medicine Adult Medicine